=== PATIENT | male | born 1940 | race Caucasian/White ===

== ENCOUNTER → 2016-05-18 | Outpatient (REF) ==
[~2016-05-18] MED LIST: ALLEGRA 180MG180 MG PO; ALLOPURINOL300 MG PO; AMOXICILLIN 8751 TAB PO; ASPI81CT PO; ASPIRIN 81M81 MG/TA2 PO; BRILINTA90 MG PO; BROVANA15 MCG/2 M IH; COREG12.5 MG PO; COZAAR 50MG50 MG/TAB PO; CYMBALTA 60MG60 MG PO; DALIRESP500 MCG PO; FLEXERIL10 MG PO; FLOMAX0.4 MG PO; FLONASE NASAL S16 GM NS; GABAPENTIN600 MG PO; HCTZ 25MG TAB25 MG PO; IPRATROPIUM BROM3 M1 IH; LASIX 20MG TABL20 MG PO; LIPITOR 80MG80 MG PO; METFORMIN500 MG PO; MS CONTIN 330 MG/TAB PO; NEURONTIN600 MG/TAB PO; NITROSTAT0.4 MG/TAB SL; NORCO 325 MG-101 TAB PO; NORVASC 5MG5 MG/TAB PO; OMEGA-3 FISH1000 MG PO; PREDNISONE20 MG PO; PULMICORT0.2 MG/AC1 IH; REGLAN10 MG PO; REQUIP 0.5MG0.5 MG PO; SINEMET 25/101 UDTAB PO; SINGULAIR10 MG PO; SPIRIVA RE2.5 MCG/Ac IH; TEKTURNA150 MG PO; TRADJENTA5 MG PO; XANAX 0.5MG0.5 MG PO; XARELTO20 MG PO; ZOCOR 80MG80 MG PO
== END ==
LOC: ZLAB.WCH 11:14
DX: Z01.89 Encounter for other specified special examinations (principal)

== ENCOUNTER → 2016-05-22 | Outpatient (REF) | LOC: ZLAB.WCH 10:49 | DX: Z01.89 Encounter for other specified special examinations (principal) ==

== ENCOUNTER → 2016-05-24 | Outpatient (REF) | LOC: ZLAB.WCH 10:21 | DX: Z01.89 Encounter for other specified special examinations (principal) ==

== ENCOUNTER 2016-05-25 13:30 | Inpatient (IN) | payer MEDICARE, BC ==
[~2016-05-25] VITALS: Ht 175.3 cm; Wt 94.8 kg
[~2016-05-25 13:30] MED LIST changes: -AMOXICILLIN 8751 TAB PO; -ASPIRIN 81M81 MG/TA2 PO; -DALIRESP500 MCG PO; -NORVASC 5MG5 MG/TAB PO; -OMEGA-3 FISH1000 MG PO; -PREDNISONE20 MG PO; -XANAX 0.5MG0.5 MG PO
[2016-05-25 13:32] VITALS: BP 180/61; PULSE 69; TEMP 98.3
[2016-05-25] MEDS ORDERED: BROVANA15 MCG/2 M IH (14:41)
[2016-05-25] MEDS ORDERED: XANAX 0.5MG0.5 MG PO (14:45)
[2016-05-25] MEDS ORDERED: ASPIRIN 81M81 MG/TA2 PO (14:50)
[2016-05-25] MEDS ORDERED: OMEGA-3 FISH1000 MG PO (14:50)
[2016-05-25 15:35] LABS: MEAN CELL VOLUME 88 fl (80.0-100.0); MEAN CORPUSCULAR HGB CONC 33 g/dl (33.0-37.0); MEAN PLATELET VOLUME 11.2 fl (7.4-10.4); PLATELET COUNT 144 K/mm3 (130-400); RED BLOOD COUNT 3.67 M/mm3 (4.20-5.60); REDCELL DISTRIBUTION WIDTH-CV 14.3 % (11.5-14.5)
[2016-05-25 15:39] LABS: ADD PATHOLOGY DIFF REVIEW NO; HEMATOCRIT 32.3 % (42.0-52.0); HEMOGLOBIN 10.8 g/dl (13.5-18.0); MEAN CORPUSCULAR HEMOGLOBIN 29 pg (27.0-31.0)
[2016-05-25 15:50] LABS: ADJUSTED CALCIUM 9.4 mg/dL (8.4-10.2); ALBUMIN 3.7 gm/dL (3.5-5.0); BILIRUBIN,TOTAL 0.9 mg/dL (0.0-1.0); CALCIUM 9.2 mg/dL (8.4-10.2); CREATININE, serum 1.31 mg/dL (0.66-1.25); POTASSIUM 5.5 mmol/L (3.4-5.0); TOTAL PROTEIN 6.8 gm/dL (6.4-8.2)
[2016-05-25 16:15] LABS: BAND 8 % (0-10); METAMYELOCYTE 1 % (0-0); NEUTROPHILS 82 % (42.0-75.2); TOTAL CELLS COUNTED 100
[2016-05-25 16:16] LABS: ANISOCYTOSIS 1+; PLATELET ESTIMATE NORMAL (NORMAL)
[2016-05-25 17:23] VITALS: BP 168/45; PULSE 63; TEMP 98.3
[2016-05-25 20:56] VITALS: BP 188/65; PULSE 65; TEMP 98
[2016-05-25 23:48] VITALS: BP 160/71; PULSE 78; TEMP 98.8
[2016-05-26] VITALS (7 sets, daily range): BP systolic 146–191; BP diastolic 50–79; PULSE 56–85; TEMP 97.4–98.7
[2016-05-26 07:27] LABS: MEAN CELL VOLUME 89 fl (80.0-100.0); MEAN CORPUSCULAR HGB CONC 33 g/dl (33.0-37.0); MEAN PLATELET VOLUME 11.2 fl (7.4-10.4); PLATELET COUNT 156 K/mm3 (130-400); RED BLOOD COUNT 3.59 M/mm3 (4.20-5.60); REDCELL DISTRIBUTION WIDTH-CV 14.2 % (11.5-14.5); WHITE BLOOD COUNT 6.6 K/mm3 (4.8-10.8)
[2016-05-26 07:29] LABS: HEMATOCRIT 31.8 % (42.0-52.0); HEMOGLOBIN 10.6 g/dl (13.5-18.0); MEAN CORPUSCULAR HEMOGLOBIN 30 pg (27.0-31.0)
[2016-05-26 07:30] LABS: ADD PATHOLOGY DIFF REVIEW NO
[2016-05-26 07:33] LABS: CALCIUM 9.3 mg/dL (8.4-10.2); CREATININE, serum 1.27 mg/dL (0.66-1.25); POTASSIUM 4.6 mmol/L (3.4-5.0)
[2016-05-26 09:07] LABS: BAND 2 % (0-10); EOSINOPHIL 1 % (0-4); NEUTROPHILS 69 % (42.0-75.2); PLATELET ESTIMATE NORMAL (NORMAL); TOTAL CELLS COUNTED 100
[2016-05-27 01:34] VITALS: BP 147/60; PULSE 91; TEMP 97.6
[2016-05-27 05:30] VITALS: BP 129/57; PULSE 66; TEMP 97.6
[2016-05-27 07:39] VITALS: BP 192/68; PULSE 99; TEMP 98.1
[2016-05-27] MEDS ORDERED: DALIRESP500 MCG PO (08:58)
[2016-05-27 09:01] LABS: MEAN CELL VOLUME 87 fl (80.0-100.0); MEAN CORPUSCULAR HGB CONC 34 g/dl (33.0-37.0); MEAN PLATELET VOLUME 10.8 fl (7.4-10.4); PLATELET COUNT 181 K/mm3 (130-400); REDCELL DISTRIBUTION WIDTH-CV 14.3 % (11.5-14.5); WHITE BLOOD COUNT 10.5 K/mm3 (4.8-10.8)
[2016-05-27] MEDS ORDERED: PREDNISONE20 MG PO (09:03)
[2016-05-27 09:16] LABS: CALCIUM 9.4 mg/dL (8.4-10.2); CREATININE, serum 1.44 mg/dL (0.66-1.25); POTASSIUM 4.3 mmol/L (3.4-5.0)
[2016-05-27 09:19] LABS: ADD PATHOLOGY DIFF REVIEW NO; HEMATOCRIT 33.1 % (42.0-52.0); HEMOGLOBIN 11.2 g/dl (13.5-18.0); MEAN CORPUSCULAR HEMOGLOBIN 29 pg (27.0-31.0)
[2016-05-27] MEDS ORDERED: AMOXICILLIN 8751 TAB PO (09:48)
[2016-05-27] MEDS ORDERED: NORVASC 5MG5 MG/TAB PO (09:48)
[2016-05-27 10:05] VITALS: BP 153/53; PULSE 88
[2016-05-27 10:18] LABS: BAND 9 % (0-10); METAMYELOCYTE 3 % (0-0); NEUTROPHILS 64 % (42.0-75.2); PLATELET ESTIMATE NORMAL (NORMAL); TOTAL CELLS COUNTED 100
[2016-05-27 10:19] LABS: OVALOCYTES 1+; SCHISTOCYTES 1+; TARGET CELLS 2+
[2016-05-27 11:34] VITALS: BP 177/53; PULSE 81; TEMP 97.9
== END 2016-05-27 14:53 | disposition home health service (06) | DRG 190 ==
LOC: MEDICAL 13:30
PROVIDERS: Internal Medicine Pulmonary Disease; Nurse Practitioner Family; Physician Assistant
PROC: 0B958ZX Drainage of Right Middle Lobe Bronchus, Via Natural or Artificial Opening Endoscopic, Diagnostic (ICD-10-PCS; 2016-05-26)
PROC: 0B968ZX Drainage of Right Lower Lobe Bronchus, Via Natural or Artificial Opening Endoscopic, Diagnostic (ICD-10-PCS; 2016-05-26)
PROC: 0B988ZX Drainage of Left Upper Lobe Bronchus, Via Natural or Artificial Opening Endoscopic, Diagnostic (ICD-10-PCS; 2016-05-26)
PROC: 0B9B8ZX Drainage of Left Lower Lobe Bronchus, Via Natural or Artificial Opening Endoscopic, Diagnostic (ICD-10-PCS; 2016-05-26)
PROC: 0B948ZX Drainage of Right Upper Lobe Bronchus, Via Natural or Artificial Opening Endoscopic, Diagnostic (ICD-10-PCS; principal; 2016-05-26 11:00)
DX: J44.0 Chronic obstructive pulmonary disease with (acute) lower respiratory infection (principal); J18.9 Pneumonia, unspecified organism; I50.33 Acute on chronic diastolic (congestive) heart failure; I13.0 Hypertensive heart and chronic kidney disease with heart failure and stage 1 through stage 4 chronic kidney disease, or unspecified chronic kidney disease; J44.1 Chronic obstructive pulmonary disease with (acute) exacerbation; E11.22 Type 2 diabetes mellitus with diabetic chronic kidney disease; N18.9 Chronic kidney disease, unspecified; I25.10 Atherosclerotic heart disease of native coronary artery without angina pectoris; Z95.5 Presence of coronary angioplasty implant and graft; G20 Parkinson's disease; E11.42 Type 2 diabetes mellitus with diabetic polyneuropathy; F17.210 Nicotine dependence, cigarettes, uncomplicated; E87.5 Hyperkalemia
CPT/HCPCS: 99233-AI; 99238; J0360; J0456; J0696; J1644; J1815; J1940; J2543; J2704; J7030; J7050; J7512

== ENCOUNTER → 2016-10-08 | Outpatient (CLI) | payer MEDICARE, BC ==
[~2016-10-08] MED LIST changes: +AMOXICILLIN 8751 TAB PO; +ASPIRIN 81M81 MG/TA2 PO; +DALIRESP500 MCG PO; +NORVASC 5MG5 MG/TAB PO; +OMEGA-3 FISH1000 MG PO; +PREDNISONE20 MG PO; +XANAX 0.5MG0.5 MG PO
== END ==
LOC: COL.RAD 10-05 11:00
DX: T17.900A Unspecified foreign body in respiratory tract, part unspecified causing asphyxiation, initial encounter (principal); K22.4 Dyskinesia of esophagus

== ENCOUNTER → 2016-12-31 | Outpatient (CLI) | payer MEDICARE, BC | LOC: COL.VAS 08:57 | DX: I82.432 Acute embolism and thrombosis of left popliteal vein (principal); I82.512 Chronic embolism and thrombosis of left femoral vein; I82.5Y2 Chronic embolism and thrombosis of unspecified deep veins of left proximal lower extremity ==

== ENCOUNTER → 2017-11-11 | Outpatient (CLI) | payer MEDICARE, BC ==
[~2017-11-11] MED LIST changes: -ALLOPURINOL300 MG PO; +ELIQUIS 5MG PO; +LASIX 40MG TABL40 MG PO; +PROTONIX 40MG T40 MG PO; +ZYLOPRIM 300MG300 MG PO
== END ==
LOC: COL.CARD 10:28
DX: R42 Dizziness and giddiness (principal)

== ENCOUNTER 2017-12-20 05:50 | Day surgery (SDC) | payer MEDICARE, BC ==
[~2017-12-20] VITALS: Ht 175.4 cm; Wt 84.0 kg
[2017-12-20] VITALS (8 sets, daily range): BP systolic 117–167; BP diastolic 46–94; PULSE 74–89; TEMP 98.1–98.7
[2017-12-20 06:36] LABS: HEMOGLOBIN 10.3 g/dl (13.5-18.0); MEAN CELL VOLUME 90 fl (80.0-100.0); MEAN CORPUSCULAR HEMOGLOBIN 28 pg (27.0-31.0); MEAN CORPUSCULAR HGB CONC 31 g/dl (33.0-37.0); MEAN PLATELET VOLUME 9.9 fl (7.4-10.4); PLATELET COUNT 146 K/mm3 (130-400); RED BLOOD COUNT 3.65 M/mm3 (4.20-5.60); REDCELL DISTRIBUTION WIDTH-CV 15.6 % (11.5-14.5)
[2017-12-20 06:39] LABS: HEMATOCRIT 32.9 % (42.0-52.0)
[2017-12-20 06:42] LABS: INR 1.1 (0.8-3.0); PROTHROMBIN TIME 12.1 SECONDS (9.7-12.8)
[2017-12-20 06:47] LABS: CALCIUM 9.1 mg/dL (8.4-10.2); CREATININE, serum 0.89 mg/dL (0.66-1.25); POTASSIUM 4.1 mmol/L (3.4-5.0)
[2017-12-21 00:30] VITALS: BP 142/58; PULSE 76
[2017-12-21 05:22] VITALS: BP 146/54; PULSE 67; TEMP 98.5
[2017-12-21 08:06] VITALS: BP 150/60; PULSE 81; TEMP 97.4
[2017-12-21] MEDS ORDERED: CEPHALEXIN500 M1 PO (09:41)
== END 2017-12-21 11:00 | disposition home or self-care (01) ==
LOC: COL.CAR 05:50 → MEDICAL 11:11 → COL.CAR 12-21 11:00
PROVIDERS: Internal Medicine Cardiovascular Disease
DX: I49.5 Sick sinus syndrome (principal); I45.9 Conduction disorder, unspecified; I25.10 Atherosclerotic heart disease of native coronary artery without angina pectoris; E11.22 Type 2 diabetes mellitus with diabetic chronic kidney disease; I12.9 Hypertensive chronic kidney disease with stage 1 through stage 4 chronic kidney disease, or unspecified chronic kidney disease; N18.2 Chronic kidney disease, stage 2 (mild); E78.5 Hyperlipidemia, unspecified; J44.9 Chronic obstructive pulmonary disease, unspecified; E66.9 Obesity, unspecified; E11.40 Type 2 diabetes mellitus with diabetic neuropathy, unspecified; G20 Parkinson's disease; Z85.828 Personal history of other malignant neoplasm of skin; Z79.82 Long term (current) use of aspirin; Z79.899 Other long term (current) drug therapy; M10.9 Gout, unspecified; Z87.891 Personal history of nicotine dependence; Z83.3 Family history of diabetes mellitus; Z80.9 Family history of malignant neoplasm, unspecified; Z95.5 Presence of coronary angioplasty implant and graft
CPT/HCPCS: OP; C1785; C1894; C1898; J0690; J2250; J3010; J7030

== ENCOUNTER 2019-02-02 11:14 | Emergency (ER) | payer MEDICARE, BC ==
[~2019-02-02] VITALS: Ht 180.3 cm; Wt 95.9 kg
[~2019-02-02 11:14] MED LIST changes: +CEPHALEXIN500 M1 PO
[2019-02-02 11:15] VITALS: TEMP 98.1
[2019-02-02 13:19] LABS: BASO % 0.3 % (0.0-2.0); EOS # 0.5 (0.0-0.7); EOS % 7.3 % (0-4.0); LYMPH # 0.8 (1.2-3.4); MEAN CELL VOLUME 92 fl (80.0-100.0); MEAN CORPUSCULAR HGB CONC 32 g/dl (33.0-37.0); MEAN PLATELET VOLUME 10.4 fl (7.4-10.4); MONO # 0.5 (0.1-0.6); MONO % 7.7 % (1.7-9.3); PLATELET COUNT 166 K/mm3 (130-400); RED BLOOD COUNT 3.31 M/mm3 (4.20-5.60); REDCELL DISTRIBUTION WIDTH-CV 16.3 % (11.5-14.5)
[2019-02-02 13:20] LABS: HEMATOCRIT 30.4 % (42.0-52.0); HEMOGLOBIN 9.6 g/dl (13.5-18.0); MEAN CORPUSCULAR HEMOGLOBIN 29 pg (27.0-31.0)
[2019-02-02 13:28] LABS: CALCIUM 8.7 mg/dL (8.4-10.2); CREATININE, serum 1.71 (0.66-1.25); POTASSIUM 4.9 mmol/L (3.4-5.0)
[2019-02-02 15:15] VITALS: BP 155/74; PULSE 68
== END 2019-02-02 15:20 | disposition short-term general hospital (02) ==
LOC: COL.ER 11:14
PROVIDERS: Emergency Medicine
DX: S06.5X0A Traumatic subdural hemorrhage without loss of consciousness, initial encounter (principal); S01.01XA Laceration without foreign body of scalp, initial encounter; S16.1XXA Strain of muscle, fascia and tendon at neck level, initial encounter; Z79.51 Long term (current) use of inhaled steroids; Z79.82 Long term (current) use of aspirin; W19.XXXA Unspecified fall, initial encounter; Y92.219 Unspecified school as the place of occurrence of the external cause
CPT/HCPCS: J1953; J7030